=== PATIENT | male | born 1945 | race Caucasian/White ===

== ENCOUNTER 2021-03-23 06:34 | Inpatient (IN) | payer MEDICARE ==
[2021-03-23] VITALS (30 sets, daily range): BP systolic 88–120; BP diastolic 46–69
[~2021-03-23] VITALS: Ht 195.6 cm; Wt 106.1 kg
--- NOTE | ~2021-03-23 | EMS ---
[address] [address] EMS Patient Care Report Name: YOAN GAITAN Room #: PRE M.R.#: [id number] Admission: Attend Phys: Discharge: Date of : 43 Report #: [id number] THIS REPORT FOR: //name// Report Transmitted: 03/23/2021 06:46 EMS Care Summary [facility] MED-ACT Incident [id number] @ 03/23/2021 05:55 Incident Location [address] [place] [address] Patient YOAN GAITAN Male, 75 Years 1945 Patient Address [address] [place] [address] Patient History Quadriplegia,Respiratory Failure, Chief Complaint Altered Mental Status Disposition Transported No Lights/[place] Dispatch Reason Unconscious/Fainting Transported To [facility] Narrative M1144 found the pt lying in his bed at [facility] with OPFD and staff at [facility]. The report from OPFD and staff was that the pt has had a changed in responsiveness. Staff stated that the pt will move his lips. The pt seems more fatigued and will sometimes track and respond to EMS. There was no reports of the pt having any recent infections or Positive COVID tests. There was no reports chest pain, abdominal pain, nausea/vomiting, diarrhea, recent [address] [address] EMS Patient Care Report Name: YOAN GAITAN Room #: PRE [facility].Danielle.#: [id number] Admission: Attend Phys: Discharge: Date of : 43 Report #: [id number] illness, or recent trauma. The pt was transported with 2 paramedics at [facility]. The pt continued to have difficulty with BVM compliance. The Pt condition remained stable en route and with hand off to [place] ED RN. The pt was transferred to ED Room 10 via a sheet drag from EMS cot to ED bed. Initial Vitals @06:20P: 59,R: 40,BP: 156/83,EtCO2: 33,SpO2: 74, @06:29P: 84,R: 22,BP: 145/85,EtCO2: 74,SpO2: 61, @PTAP: 92,R: 20,BP: 72/54,Pain: 0/10,GCS: 6,Temp: 98F,Glucose: 187,SpO2: 96,Revised Trauma: 8, Impression Altered Mental Status Procedures @06:08 ALS Assessment Response: UnchangedSucceeded @06:12 Oxygen FlowRate: 25 Device: Bag Valve Mask (BVM) Response: UnchangedSucceeded Timeline ASSEMBLER GOLF WOOD HEAD,BP: 72/54 M,PULSE: 92,RR: 20 R,SPO2: 96 Ox,ETCO2: ,B,PAIN: 0,GCS: 6, 05:54,Call Received 05:54,Psap Call 05:55,Dispatched 05:57,En Route 06:02,On Scene 06:06,At Patient 06:08,ALS Assessment,Response: UnchangedSucceeded, 06:12,Oxygen FlowRate: 25 Device: Bag Valve Mask (BVM) Response: UnchangedSucceeded, 06:20,BP: 156/83 M,PULSE: 59,RR: 40 R,SPO2: 74 Ox,ETCO2: 33 ,BG: ,PAIN: ,GCS: , 06:20,Depart Scene 06:29,At Destination 06:29,BP: 145/85 M,PULSE: 84,RR: 22 R,SPO2: 61 Ox,ETCO2: 74 ,BG: ,PAIN: ,GCS: , 06:53,Call Closed Disclaimer v1.1 Copyright 2021 [employer] This EMS Care Summary contains data elements from the applicable legal record (which may be displayed differently). It is designed to provide pertinent information for the following purposes: continuity of care, clinical quality, and state data reporting. The complete legal record [place] [address] EMS Patient Care Report Name: YOAN GAITAN Room #: PRE M.R.#: [id number] Admission: Attend Phys: Discharge: Date of : 43 Report #: [id number] and administrators of the receiving hospital in [employer] Patient Tracker. All data is provided "as is."
--- NOTE | ~2021-03-23 | EMS ---
[address] [address] EMS Patient Care Report Name: YOAN ALTMAN Room #: 243-P ADM IN M.R.#: [id number] Admission: 03/23/21 Attend Phys: Nissa Suazo Discharge: Date of : 43 Report #: [id number] THIS REPORT FOR: //name// Report Transmitted: 03/29/2021 16:38 EMS Care Summary [facility] MED-ACT Incident [id number] @ 03/23/2021 05:55 Incident Location [address] [place] [address] Patient YOAN GAITAN Male, 75 Years 1945 Patient Address [address] [place] [address] Patient History Quadriplegia,Respiratory Failure, Chief Complaint Altered Mental Status Disposition Transported No Lights/[place] Dispatch Reason Unconscious/Fainting Transported To [facility] Narrative M1144 found the pt lying in his bed at [facility] with OPFD and staff at care. The report from OPFD and staff was that the pt has had a changed in responsiveness. Staff stated that the pt will move his lips. The pt seems more fatigued and will sometimes track and respond to EMS. There was no reports of the pt having any recent infections or Positive COVID tests. There was no reports chest pain, abdominal pain, nausea/vomiting, diarrhea, recent [address] [address] EMS Patient Care Report Name: YOAN ALTMAN Room #: 243-P ADM IN M.R.#: [id number] Admission: 03/23/21 Attend Phys: Nissa Suazo Discharge: Date of : 43 Report #: [id number] illness, or recent trauma. The pt was transported with 2 paramedics at [facility]. The pt continued to have difficulty with BVM compliance. The Pt condition remained stable en route and with hand off to [place] ED RN. The pt was transferred to ED Room 10 via a sheet drag from EMS cot to ED bed. Initial Vitals @06:20P: 59,R: 40,BP: 156/83,EtCO2: 33,SpO2: 74, @PTAP: 92,R: 20,BP: 72/54,Pain: 0/10,GCS: 6,Temp: 98F,Glucose: 187,SpO2: 96,Revised Trauma: 8, @06:29P: 84,R: 22,BP: 145/85,EtCO2: 74,SpO2: 61, Impression Altered Mental Status Procedures @06:08 ALS Assessment Response: UnchangedSucceeded @06:12 Oxygen FlowRate: 25 Device: Bag Valve Mask (BVM) Response: UnchangedSucceeded Timeline SHUTTLE VAN DRIVER,BP: 72/54 M,PULSE: 92,RR: 20 R,SPO2: 96 Ox,ETCO2: ,B,PAIN: 0,GCS: 6, 05:54,Call Received 05:54,Psap Call 05:55,Dispatched 05:57,En Route 06:02,On Scene 06:06,At Patient 06:08,ALS Assessment,Response: UnchangedSucceeded, 06:12,Oxygen FlowRate: 25 Device: Bag Valve Mask (BVM) Response: UnchangedSucceeded, 06:20,BP: 156/83 M,PULSE: 59,RR: 40 R,SPO2: 74 Ox,ETCO2: 33 ,BG: ,PAIN: ,GCS: , 06:20,Depart Scene 06:29,At Destination 06:29,BP: 145/85 M,PULSE: 84,RR: 22 R,SPO2: 61 Ox,ETCO2: 74 ,BG: ,PAIN: ,GCS: , 06:53,Call Closed Disclaimer v1.1 Copyright 2021 [employer] This EMS Care Summary contains data elements from the applicable legal record (which may be displayed differently). It is designed to provide pertinent information for the following purposes: continuity of care, clinical quality, and state data reporting. The complete [place] [address] EMS Patient Care Report Name: YOAN ALTMAN Room #: 243-P ADM IN M.R.#: [id number] Admission: 03/23/21 Attend Phys: Nissa Suazo Discharge: Date of : 43 Report #: [id number] and administrators of the receiving hospital in [employer] Patient Tracker. All data is provided "as is."
[2021-03-23 07:40] LABS: HEMATOCRIT 28.6 % (42.0-52.0); HEMOGLOBIN 8.8 gm/dL (14.0-18.0); MCH 33.3 pg (26.0-34.0); MCHC 30.7 g/dL (28.0-37.0); MCV 108.5 fL (80.0-100.0); PLATELET COUNT 296 thou/uL (150-400); RBC 2.64 mil/uL (4.50-6.00); RDW 21.2 % (10.5-14.5); WBC 16.7 thou/uL (4.0-11.0)
[2021-03-23 07:48] LABS: BE(vivo) 0.8 mmol/L (-2 to +3); HCO3 28.7 mmol/L (22.0-26.0); PO2 80.7 mmHg (80.0-100.0); sO2 93.9 % (92.0-98.0)
[2021-03-23 07:50] LABS: PCO2 65.3 mmHg (35.0-45.0); pH 7.261 (7.360-7.450)
[2021-03-23 07:54] LABS: CALCIUM 9.5 mg/dL (8.5-10.1); CREATININE 0.5 mg/dL (0.7-1.3); POTASSIUM 5.8 mmol/L (3.5-5.1)
[2021-03-23 08:03] LABS: ALBUMIN 2.2 g/dL (3.4-5.0); TOTAL BILIRUBIN 0.4 mg/dL (0.2-1.0); TOTAL PROTEIN 9.1 g/dL (6.4-8.2)
[2021-03-23 08:24] LABS: URINE BILIRUBIN NEGATIVE (Negative); URINE BLOOD 2+ (Negative); URINE CLARITY HAZY; URINE COLOR YELLOW; URINE GLUCOSE-RANDOM* NEGATIVE (Negative); URINE KETONES NEGATIVE (Negative); URINE LEUKOCYTES-REFLEX 2+ (Negative); URINE NITRITE-REFLEX NEGATIVE (Negative); URINE PROTEIN (DIPSTICK) 2+ (Negative); URINE SPECIFIC GRAVITY >= 1.030 (1.005-1.035); URINE UROBILINOGEN 0.2 E.U./dl (0.2-1.0)
[2021-03-23 08:42] LABS: SQUAMOUS 0-3 Few /LPF (0-3)
[2021-03-23 08:43] LABS: BACTERIA-REFLEX >30 Many /HPF (None Seen); CASTS None Seen /LPF (None Seen); CRYSTALS None Seen /LPF (None Seen); MUCUS 0-3 Light strn/LPF (None Seen); URINE RBC 1-2 Rare /HPF (NONE SEEN)
[2021-03-23 10:08] LABS: BE(vivo) 5.7 mmol/L (-2 to +3); HCO3 31.9 mmol/L (22.0-26.0); PCO2 56.4 mmHg (35.0-45.0); PO2 101.6 mmHg (80.0-100.0); sO2 97.4 % (92.0-98.0)
[2021-03-23 10:21] LABS: ABSOLUTE NEUTROPHILS 14.7 thou/uL (1.4-8.2)
[2021-03-23 10:23] LABS: ANISOCYTOSIS 2+; POLYCHROMASIA OCCASIONAL
--- NOTE | 2021-03-23 11:24 | NUR ---
PT VENT SETTINGS: PEEP 8, RATE 18, VOLUME 500, FIO2 45%
--- NOTE | 2021-03-23 13:25 | NUR ---
PT POWER OF SECURITIES TRADER WAS ATTEMPTED TO BE REACHED FOR CONSENT FOR CENTRAL LINE BUT SHE DID NOT ANSWER. CENTRAL LINE BEING STARTED OUT OF MEDICAL NECCESSITY FOR PATIENT DUE TO ACUTE CONDITION.
--- NOTE | 2021-03-23 14:45 | NUR ---
CL PLACED IN ER FOR SEPSIS
--- NOTE | 2021-03-23 14:47 | NUR ---
PT ADMITTED RELATED TO HYPERCAPNEA. CM REVIWED CHART AND SPOKE WITH CARE TEAM. CM CALLED AND SPOKE WITH PT'S DTR OLGA LIDIA GRIMALDO . SHE INDICATED THAT PT HAD BEEN AT [facility] BAND SAW RUNNER. SHE CONFIRMED THAT PT HAS HX OF QUADRAPLEGIA HAD A TRACH, PEG, AND BL NEPHROSTOMY TUBES. SHE INDICATED THAT PT HAD BEEN MOSTLY NONVERBAL BAND SAW RUNNER BUT HE HAD BEEN ABLE TO MAKE HIS NEES KNOWN (FAMILY/STAFF COULD READ HIS LIPS.) DTR INDICATED THAT PLAN WOULD BE FOR PT TO WAKE [facility] ONCE MEDICALLY STABLE. PT WAS PUT ON VENT UPON ADMISSION FIO2 45% PEEP 8. PT HAD MIDLINE PLACED. CM NOTIFIED [facility]. CM FAXED CLINICAL INFO TO FACILITY. CM TO FOLLOW INDICATED WITH DC PLANNING.
--- NOTE | 2021-03-23 20:01 | NUR ---
PT ARRIVED TO ICU FROM ED AT 1745 BY ED RN AND ED RT. PT DID NOT HAVE ANY BELONGINGS UPON ADMIT TO ICU. PT STATUS REMAINED STABLE AND PT DENIED PAIN OR DISCOMFORT. ED DID NOT INFORM THIS RN THAT PATIENT WAS SEPTIC AND PT DID NOT PRESENT WITH A FEVER. STAT CT WAS ORDERED AT 1705 AND WAS NOT COMPLETED PRIOR TO ICU ADMIT. THIS RN CALLED CT TWICE AND COULD NOT GET AHOLD OF ANYONE. MECHATRONICS TECHNICIAN TO FOLLOW UP WITH CT. PT FOLLOWED SOME COMMANDS, BUT WAS NOT RESPONSIVE ENOUGH TO THOROUGHLY COMPLETE ADMIT EDUCATION, HISTORY, AND ASSESSMENT. UMBILICAL WOUND PHOTOGRAPH WAS TAKEN AND PLACED IN PT'S CHART. RN TO FOLLOW PLAN OF CARE.
[2021-03-24] VITALS (67 sets, daily range): BP systolic 84–140; BP diastolic 47–83
[2021-03-24 05:04] LABS: CALCIUM 8.6 mg/dL (8.5-10.1); CREATININE 0.5 mg/dL (0.7-1.3)
[2021-03-24 05:06] LABS: MCH 35.7 pg (26.0-34.0); MCHC 33.9 g/dL (28.0-37.0); MCV 105.4 fL (80.0-100.0); RBC 1.83 mil/uL (4.50-6.00); RDW 20.4 % (10.5-14.5); WBC 8.1 thou/uL (4.0-11.0)
[2021-03-24 05:26] LABS: HEMATOCRIT 19.3 % (42.0-52.0); HEMOGLOBIN 6.3 gm/dL (14.0-18.0)
[2021-03-24 05:47] LABS: POTASSIUM 4.1 mmol/L (3.5-5.1)
--- NOTE | 2021-03-24 06:38 | NUR ---
ASSUMED CARE OF PT AT 1900. DURING THIS SHIFT I OBTAINED AN EKG THAT SHOWED THE PATIENT HAS CONVETED TO AFIB. I CONTACTED THE LUGGAGE REPAIRER AND RECIEVED ORDERS AND IMPLEMENTED THEM. THERE WERE CRITICAL LABS THIS MORNING A HGB OF 6.3 AND HCT OF 19.3, I RECIEVED ORDERS TO TRANSFUSE WITH 1 UNIT OF PRBC AND HOLD LOVENOX. THIS RN AND A WITNESS CALLED THE PATIENTS DAUGHTER TO OBTAIN CONSENT FOR BLOOD. WILL CONTINUE TO FOLLOW POC.
--- NOTE | 2021-03-24 07:48 | HC ---
[facility] [place] [address] CONSULTATION Name: YOAN ALTMAN Room #: 250-P ADM IN M.R.#: [id number] Admission: 03/23/21 Attend Phys: Nissa Suazo Discharge: Date of : 43 Report #: [id number] THIS REPORT FOR: cc: UNKNOWN UNKNOWN Pablo Mane MD ~ DATE OF SERVICE: 03/23/2021 INFECTIOUS DISEASE CONSULTATION ATTENDING PHYSICIAN: Dr. Suazo. REASON FOR EVALUATION: Septic shock. HISTORY OF PRESENT ILLNESS: Chart reviewed. The patient examined. This is a 75-year-old gentleman who is quadriplegic. He is on a chronic ventilatory support on acute long-term care facility. He was found to be markedly hypotensive with systolic blood pressures in the 70s, subsequently developed saturations in the 30s as well, has tracheostomy in place, thick colored sputum. He does have bilateral nephrostomy tubes. His urinalysis did show moderate to marked pyuria. Chest x-ray; bilateral infiltrates, perhaps multifactorial, can exclude a component of pulmonary edema. Lactic acid was 2.0. ProBNP elevated at 9470. Pro-calcitonin 0.73. Influenza antigen was negative. Sputum culture is pending, although Gram stain showed few gram-negative rods. He was empirically started on Zosyn and vancomycin. He is awake. It is difficult to ascertain his level of coherence. He attempts speaking, but it quite difficult to read his lips. ALLERGIES: SYNVISC. CURRENT MEDICATIONS: Include vancomycin, enoxaparin, guaifenesin, hydrocortisone, acetylcysteine, Zosyn, sliding scale insulin, p.r.n. analgesics and antiemetics. He is currently not requiring pressor support. PAST MEDICAL HISTORY: Quadriplegia. History of stroke. He is on chronic ventilatory support via tracheostomy, has a PEG tube in place. Bilateral nephrostomies. SOCIAL AND FAMILY HISTORY: Available in chart. REVIEW OF SYSTEMS: Not obtainable. PHYSICAL EXAMINATION: GENERAL: He appears chronically ill. He is fairly animated, although it is very difficult to understand any particular communication. VITAL SIGNS: Temperature 98.1, pulse 80, respirations 18, blood pressure 93/48. [facility] [address] [place] [address] CONSULTATION Name: YOAN ALTMAN Room #: 250-[facility] IN M.R.#: [id number] Admission: 03/23/21 Attend Phys: Nissa Suazo Discharge: Date of : 43 Report #: [id number] SKIN: Warm, dry. HEENT: Normocephalic. Extraocular muscles intact. No oral lesions. NECK: Tracheostomy in place. LUNGS: Scattered coarse breath sounds. HEART: Distant. I do not appreciate a murmur. ABDOMEN: Obese, firm, no apparent peritoneal signs. Does have a PEG tube in place. EXTREMITIES: Bilateral nephrostomies. GENITOURINARY AND RECTAL: Deferred. LABORATORY DATA: Recent chest x-ray, mid to lower lung infiltrates. Cultures are pending. CBC: White count of 16.7, H and H 8.8 and 28.6, MCV of 108.5, platelet count of 296. ABGs: A pH 7.370, pCO2 of 56.4, pO2 101.6, FiO2 of 45%. Lactic acid 1.7. Influenza antigen negative. Urinalysis; 16-25 white cells, greater than 30 bacteria. Pro-calcitonin 0.73. Liver function tests unremarkable. Alkaline phosphatase 131, total protein of 91, albumin of 2.2. ASSESSMENT AND PLAN: Septic shock, likely on the basis of complicated genitourinary tract infection, although can exclude aspiration pneumonitis, somewhat maintained his oxygen status. We will continue broad-spectrum antimicrobial therapy. Await culture results that are pending. He is certainly critically ill with a heavy disease burden, very little room for deterioration, do additional diagnostic testing. Continue supportive care. <ELECTRONICALLY SIGNED> By: Pablo Mane MD 03/24/21 0748 1558 2131 Pablo Mane MD /nt
[2021-03-24 08:05] LABS: % SATURATION 35 % (20-39); IRON 62 ug/dL (65-175); TIBC 176 ug/dL (250-450)
--- NOTE | 2021-03-24 08:37 | EKG ---
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 : 1945 Requested By: Moira Helms Order Number: [id number] MD: Keyshawn Montejo Measurements Intervals [place] Rate: 81 P: 69 UT: 212 QRS: 65 QRSD: 90 T: 91 QT: 414 QTc: 481 Interpretive Statements Sinus rhythm Borderline prolonged UT interval Nonspecific T abnormalities, lateral leads No previous ECG available for comparison Electronically Signed On 03-24-2021 8:37:24 WIND FIELD SERVICE MANAGER by Keyshawn Monteoj [email or web address] <ELECTRONICALLY SIGNED> By: Keyshawn Montejo MD, [facility] 03/24/21 0837 0829 8 Keyshawn Montejo MD, FACC /EPI
--- NOTE | 2021-03-24 08:40 | EKG ---
[address] [place] [address] ELECTROCARDIOGRAM REPORT Name: YOAN ALTMAN Room #: 250-P ADM IN M.R.#: [id number] Admission: 03/23/21 Attend Phys: Nissa Suazo Discharge: Date of : 43 Report #: [id number] [facility] Test Date: 2021-03-24 Test Time: 04:27:35 Pat Name: YOAN ALTMAN Department: Room: 250 P Gender: M Senior Program Manager: : 1945 Requested By: Nestor Nj Order Number: [id number] MD: Keyshawn Montejo Measurements Intervals [place] Rate: 124 P: TN: QRS: 62 QRSD: 93 T: 107 QT: 354 QTc: 509 Interpretive Statements Atrial fibrillation Nonspecific T abnormalities, lateral leads Prolonged QT interval Baseline wander in lead(s) II,III,aVR,aVF Compared to ECG 03/23/2021 08:29:47 Sinus rhythm no longer present T-wave abnormality still present Electronically Signed On 03-24-2021 8:40:27 TECHNICAL STAFF ENGINEER by Keyshawn Montejo [email or web address] <ELECTRONICALLY SIGNED> By: Keyshawn Montejo MD, [facility] 03/24/21 0840 0427 0427 Keyshawn Montejo MD, [facility] /EPI
--- NOTE | 2021-03-24 13:22 | NUR ---
If okay with GI, recommend start enteral nutrition via PEG of vital AF 1.2 at 40ml/hr and progress to goal of 85ml/hr with 250ml water flush every 6hr. Rec discontinue IVF once tube feeds tolerated.
--- NOTE | 2021-03-24 13:23 | 2DMMODE ---
[facility] [place] [address] 2 D/M-MODE ECHOCARDIOGRAM Name: YOAN ALTMAN Room #: 250-P ADM IN M.R.#: [id number] Admission: 03/23/21 Attend Phys: Nissa Suazo Discharge: Date of : 43 Report #: [id number] THIS REPORT FOR: cc: UNKNOWN UNKNOWN Sid Jaeger MD ~ APPROVED REPORT Study performed: 03/24/2021 10:35:59 EXAM: Comprehensive 2D, Doppler, and color-flow Echocardiogram Patient Location: ICU Room #: 250 Status: routine BSA: 2.19 HR: 80 bpm BP: 117/58 mmHg Rhythm: Atrial Fibrillation Other Information Study Quality: Technically Difficult Technically limited study due to inability to position patient, patient on ventilator. Indications Atrial Fibrillation Sepsis Dyspnea Aortic Valve AoV Peak Collin.: 1.50 m/s AO Peak Gr.: 8.94 mmHg LVOT Max P.36 mmHg LVOT Max V: 0.92 m/s Tricuspid Valve TR Peak Collin.: 2.72 m/s TR Peak Gr.: 29.51 mmHg PA Pressure: 30.00 mmHg Left Ventricle The left ventricle is normal size. There is normal LV segmental wall motion. There is normal left ventricular wall thickness. The left ventricular systolic function is normal. The left ventricular ejection fraction is within the normal range. LVEF is 55-60%. This [facility] [place] [address] 2 D/M-MODE ECHOCARDIOGRAM Name: YOAN ALTMAN Room #: 250-P ADM IN M.R.#: [id number] Admission: 03/23/21 Attend Phys: Nissa Felix Discharge: Date of : 43 Report #: [id number] study is not technically sufficient to allow evaluation of the LV diastolic function due to atrial fibrillation. Right Ventricle The right ventricle is normal size. The right ventricular systolic function is normal. Atria The left atrium size is normal. The right atrium size is normal. Aortic Valve The aortic valve is not well visualized. No aortic regurgitation is present. There is no aortic valvular stenosis. Mitral Valve The mitral valve is normal in structure. There is no mitral valve regurgitation noted. No evidence of mitral valve stenosis. Tricuspid Valve The tricuspid valve is normal in structure. There is trace to mild tricuspid regurgitation. Estimated PAP 30 mmHg plus the right atrial pressure. Pulmonic Valve Pulmonic valve is not well visualized. There is no pulmonic valvular regurgitation. Great Vessels The aortic root is normal in size. The inferior vena cava is not well visualized. Pericardium There is no pericardial effusion. <Conclusion> The left ventricle is normal size. There is normal left ventricular wall thickness. The left ventricular systolic function is normal. The right ventricle is normal size. The left atrium size is normal. The aortic valve is not well visualized. There is no mitral valve regurgitation noted. [facility] [place] [address] 2 D/M-MODE ECHOCARDIOGRAM Name: YOAN ALTMAN Room #: 250-P ADM IN M.R.#: [id number] Admission: 03/23/21 Attend Phys: Nissa Felix Discharge: Date of : 43 Report #: [id number] There is trace to mild tricuspid regurgitation. Estimated PAP 30 mmHg plus the right atrial pressure. <ELECTRONICALLY SIGNED> By: Sid Jaeger MD 03/24/213 22 22 Sid Jaeger MD /INF
--- NOTE | 2021-03-24 15:27 | NUR ---
RICARDO faxed clinical info to [facility] for review. Notified Poly liaisons, Raffy. Possible weekend discharge. Awaiting input from facility if they are able to accept pt back over the weekend. RICARDO is following to assist as needed with discharge planning.
[2021-03-24 16:58] LABS: HEMATOCRIT 24.9 % (42.0-52.0); HEMOGLOBIN 8.1 gm/dL (14.0-18.0)
--- NOTE | 2021-03-24 19:40 | NUR ---
PT IS PROGRESSING TOWARDS DISCHARGE, APPEARS MORE AWAKE TODAY AND WAS ABLE TO GO DOWN TO THE CT THIS MORNING FOR DIAGNOSTICS IMAGING. BILATERAL NEPHROSTOMY TUBES REMAINS IN PLACE AND DRAINS, COMPLAINTS FROM PATIENT FOR PAIN ONCE WHEN MOBILIZING AND MORPHINE WAS GIVEN. DILTIAZEM GTT WAS DC'D AND PO MEDS WERE INITATED, PT WAS FOUND TO BE HYPOTENSIVE/AND BRADYCARDIC WHILE SLEEPING X1 AND RN ASSESSED, DILTIAZEM PO WAS NOT GIVEN PER PT'S CONDITION THE TWO DOSES AFTER PT DID HAVE AN INCIDENCE WHERE HE WAS DECLINING CARE, RN CALLED THE DAUGHTER TO SPEAK, PER DTR OLGA LIDIA PAEZ, PT IS COMPLETELY ORIENTED AND ALERT, RN WENT TO SPEAK TO THE PATIENT, PT WAS FOUND TO BE DISORIENTED OF TIME STATING [address] STATING THE [place] TRACKS. NO COMPLAINTS FROM PATIENT THIS SHIFT, THOUGH IT IS MORE DIFFICULT TO READ PT'S LIPS THERE ARE NO TEETH. BED BATH WAS PROVIDED, PT IS CURRENTLY SEEN RESTING PEACEFULLY UROLOGY IS CONSULTED AND WILL BE SEEN BY A PHYSICIAN TOMORROW. MRSA IS PENDING, VANCO TROUGH CAME BACK HIGH, H/H CAME BACK HIGHER AFTER THE FIRST UNIT OF BLOOD. PT WILL CONTINUE TO BE MONITORED FOR ANY OVERT SIGNS OF BLEEDING, OCCULT STOOL SAMPLE DOES NEED TO BE COLLECTED WHEN READY. TUBE FEEDING IS HELD OFF UNTIL CT OF THE ABDOMEN AND PELVIS IS COMPLETED, EXPECTING TUBE FEEDING TO RESUME TOMORROW. [facility] WAS CONTACTED BY THE COIN MACHINE SERVICE REPAIRER ON NUMEROUS OCCASION THROUGH THE FAX MACHINE, AT ALL TIMES THE FAX MACHINE STATED BUSY LINES AND THEREFORE REQUEST FOR PAST MEDICAL RECORDS COULD NOT BE COMPLETED. UNFORTUNATELY. RN SIGNING OFF AT THIS TIME
[2021-03-25] VITALS (19 sets, daily range): BP systolic 86–133; BP diastolic 31–77
[2021-03-25 03:47] LABS: HEMATOCRIT 25.5 % (42.0-52.0); HEMOGLOBIN 8.2 gm/dL (14.0-18.0); MCH 32.4 pg (26.0-34.0); MCHC 32.1 g/dL (28.0-37.0); MCV 101.1 fL (80.0-100.0); RBC 2.52 mil/uL (4.50-6.00); RDW 22.7 % (10.5-14.5); WBC 7.6 thou/uL (4.0-11.0)
[2021-03-25 03:51] LABS: CALCIUM 8.4 mg/dL (8.5-10.1); CREATININE 0.5 mg/dL (0.7-1.3); POTASSIUM 3.6 mmol/L (3.5-5.1)
--- NOTE | 2021-03-25 06:21 | NUR ---
ASSUMED CARE OF PT AT 1900. PT WENT INTO AFIB RVR OVERNIGHT. THIS RN PAIGED CARDIOLOGY AT 0415 TO INFORM OF THIS EVENT. CALL WAS NOT RETURNED. PT CONVERTED BACK TO SINUS RHYTHM. NO OTHER ACUTE CHANGES OVERNIGHT. WILL CONTINUE TO FOLLOW POC.
[2021-03-25 09:39] LABS: APTT 25.1 Seconds (24.5-32.8); INR 1.07; PROTIME 11.6 Seconds (10.5-12.1)
--- NOTE | 2021-03-25 10:33 | NUR ---
This RN spoke with the patient's daughter, Sasha Frederick, over the phone from [phone] and she was updated and educated on the patient's condition and plan of care. Consent was obtained from her regarding the patient's upcoming nephrostomy exchange.
--- NOTE | 2021-03-25 12:36 | NUR ---
Change tube feed formula to vital AF 1.2 at 50ml/hr. Dr Suazo would like to keep water flushes at 100ml QID
[2021-03-25 14:07] LABS: GLOBULIN TOTAL 5.8 g/dL (2.2-3.9); M-SPIKE Not Observed g/dL (Not Observed)
--- NOTE | 2021-03-25 14:20 | NUR ---
Case discussed with the care team. No weekend dc anticipated. 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 Urology consulted for replacement of his bilat nephro tubes. GI following for anemia. HBG 8.2 this am. They will monitor. Clinical updated called and faxed to Darcie in admissions at [facility]. They can accept him for readmission on Sunday if medical ready. Will follow.
[2021-03-26] VITALS (60 sets, daily range): BP systolic 69–180; BP diastolic 47–97
[2021-03-26 05:35] LABS: ALBUMIN 1.8 g/dL (3.4-5.0); CALCIUM 8.8 mg/dL (8.5-10.1); CREATININE 0.6 mg/dL (0.7-1.3); MAGNESIUM 2.4 mg/dL (1.8-2.4); PHOSPHORUS 5.2 mg/dL (2.5-4.9); POTASSIUM 3.3 mmol/L (3.5-5.1); TOTAL BILIRUBIN 0.2 mg/dL (0.2-1.0); TOTAL PROTEIN 7.2 g/dL (6.4-8.2)
--- NOTE | 2021-03-26 06:35 | NUR ---
This RN received pt report at 2200, from ADAN Simon. pt was tranferred from ICU room 250 to ICU room 243 at 0100 with the help of RT and recharger. Tranfer was successful and pt condition remain similar prior to transfer.
--- NOTE | 2021-03-26 12:01 | NUR ---
PT C/O OF INTERMITTANT CHEST PAIN, SAYS IT COMES AND GOES. PT IS NON VERBAL, AM LIP READING PATIENT. PT HR THIS MORNING WAS IN 60-70 RANGE WITH B/P BORDERLINE HYPOTENSIVE. CARTOON DESIGNER ROUNDED THIS AM, INFORMED HIM OF FINDINGS AND AGREED TO HOLD METORPROLOL. PAGED DR. WATKINS AT 1200 INFORMING HIM OF PT C/O OF CP AT THIS TIME, STAT EKG ORDERED.
--- NOTE | 2021-03-26 14:09 | NUR ---
PT BECAME HYPOTENSIVE WITH PRESSURES READING IN 80'S SYSTOLIC, PT STARTED ON 0.1MCG/KG/MIN. PT RESPONDED WELL TO MEDICATION.
--- NOTE | 2021-03-26 16:36 | NUR ---
PT CONTINUES TO HAVE AFIB RVR WITH RATES REACHING 168/MIN DESPITE BEING ON AMIO GTT AT 1MG/MIN. PUT IN PAGE TO CARDIOLOGY GROUP, PER DR. FISCHER PT IS TO GET DIGOXIN IVP 1MG NOW AND 6 HRS LATER TO GET 0.5MG IVP. WILL CONTINUE TO FOLLOW POC AND MONITOR/REASSESS.
--- NOTE | 2021-03-26 20:38 | EKG ---
[address] [address] ELECTROCARDIOGRAM REPORT Name: YOAN ALTMAN Room #: 243- ADM IN M.R.#: [id number] Admission: 03/23/21 Attend Phys: Nissa Suazo Discharge: Date of : 41 Report #: [id number] [facility] Test Date: 2021-03-26 Test Time: 12:12:27 Pat Name: YOAN ALTMAN Department: Room: [facility] Gender: M Insurance Loss Adjuster: DONTA : 1945 Requested By: Nissa Suazo Order Number: [id number] MD: Roger Lin Measurements Intervals Stephan Rate: 89 P: AR: QRS: 46 QRSD: 99 T: 72 QT: 403 QTc: 491 Interpretive Statements Atrial fibrillation Minimal ST depression, inferior leads Borderline prolonged QT interval Compared to ECG 03/24/2021 04:27:35 No significant change was found Electronically Signed On 03-26-2021 20:38:22 MEAT SLICER by Roger Lin [email or web address] <ELECTRONICALLY SIGNED> By: Roger Lin MD, [facility] 03/26/212037 11 11 Roger Lin MD, FAC /EPI
[2021-03-27] VITALS (72 sets, daily range): BP systolic 69–191; BP diastolic 26–102
--- NOTE | 2021-03-27 06:21 | NUR ---
PT RESTED WELL THROUGH THE NOC IN NO ACUTE DISTRESS.PT A/OX3.MAKES HIS NEEDS KNOW TO STAFF.PT ON TRACH AND VENT.NO RESP DISTRESS NOTED.WOUND CARE TO MID ABD COMPLETED PER ORDERS.PT AFIB/SR/SB/SA ON MONITOR.HR CONTROLLED.REMAINS ON AMIO DRIP.ASSESSMENT COMPLETED DOCUMENTED.
--- NOTE | 2021-03-27 18:06 | NUR ---
Patient progressing towards plan of care as evidenced by improved interaction, maintaining oxygenation, controled heart rate with amiodarone, and vital signs within normal limits per Physician parameters.
--- NOTE | 2021-03-27 21:33 | NUR ---
patients cares done , assessment done, oral care was given. trough draw was late due to rn believed the vanco was on hold. Kaz the pharmacist stated vanco on hold due to high trough 25-30. the plan is to restart vanco at some point.
--- NOTE | 2021-03-27 22:45 | NUR ---
VANCO TROUGH BACK TONIGHT LEVEL IS 16. WBC'S ARE WNL. NO OTHER LABS DRAWN. OUT PUT IS GOOD
[2021-03-28] VITALS (26 sets, daily range): BP systolic 100–140; BP diastolic 52–77
[2021-03-28 09:23] LABS: CALCIUM 8.5 mg/dL (8.5-10.1); CREATININE 0.5 mg/dL (0.7-1.3); POTASSIUM 3.3 mmol/L (3.5-5.1)
--- NOTE | 2021-03-28 10:24 | NUR ---
Will change tube feed to jevity 1.5, concentrated formula, with new goal of 70ml/hr.
--- NOTE | 2021-03-28 11:05 | NUR ---
Discussed during unit rounds with pulmonary MD and during los with the attending physician. No anticipated dc back to [facility] today. trach/peg 30 % with peep 8. Will cont following as needed.
--- NOTE | 2021-03-28 17:25 | NUR ---
PATIENT PROGRESSING TOWARDS THE PLAN OF CARE. MEDICAL RECORDS FROM [facility] OBTAINED AROUND 1700.
[2021-03-29] VITALS: BP 128/67
[2021-03-29 04:01] VITALS: BP 130/71
[2021-03-29 05:08] LABS: HEMATOCRIT 24.5 % (42.0-52.0); HEMOGLOBIN 7.8 gm/dL (14.0-18.0)
[2021-03-29 05:45] LABS: CALCIUM 8.2 mg/dL (8.5-10.1); CREATININE 0.4 mg/dL (0.7-1.3); MAGNESIUM 1.9 mg/dL (1.8-2.4)
--- NOTE | 2021-03-29 07:25 | NUR ---
No significant changes in pt status this shift. Tolerating tube feeding, which is now at goal rate of 70 cc/hr. Pt had 2 moderate size liquid brown stools. 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 Nephrostomy tubes draining clear yellow urine.
--- NOTE | 2021-03-29 11:15 | NUR ---
Discussed during los with the attending physician. Ready to dc back to [facility]. Chart copy requested. updates sent to [facility], they are able to accept him back today, ltc. Bedside nurse to call report to [phone]
[2021-03-29] MEDS ORDERED: LEVALBUTER0.63 MG/3 INH (11:17)
[2021-03-29] MEDS ORDERED: XARELTO20 MG PO (11:18)
[2021-03-29] MEDS ORDERED: ACETAMINOPHEN325 M1 PO (11:19)
[2021-03-29] MEDS ORDERED: PACERONE 200 M200 M1 PER TUBE (11:19)
[2021-03-29] MEDS ORDERED: DAKIN'S473 M2 IRRIG (11:19)
[2021-03-29] MEDS ORDERED: AVYCAZ 2 GM-0.2.5 GM IV (11:20)
[2021-03-29] MEDS ORDERED: ADULT TUSS100 MG/5 M PER TUBE (11:20)
[2021-03-29 11:21] LABS: ABSOLUTE RETIC COUNT 0.073 10^6/uL; OBSERVED RETIC COUNT 3.04 % (0.6-2.6)
[2021-03-29 12:00] VITALS: BP 113/89
--- NOTE | 2021-03-29 12:16 | NUR ---
SPOKE TO PT REGARDING DISCHARGE BACK TO FACILITY. PT RELAYED SOME ANXIETY THAT THE STAFF AT [facility] WILL FORCE HIM TO GET A RANDLE CATHETER. PT HAS STATED THAT HE DOES NOT WANT A RANDLE CATHETER. RN EXPLAINED WHY HE NEEDS A RANDLE CATHETER. PT UNDERSTANDS AND STILL REFUSES A CATHETER.
[2021-03-29 12:59] LABS: FOLIC ACID 8.8 ng/mL (8.6-58.9)
[2021-03-29 16:58] VITALS: BP 130/64
[2021-03-29 20:01] VITALS: BP 162/137
[2021-03-30 00:01] VITALS: BP 101/59
[2021-03-30 04:01] VITALS: BP 111/63
[2021-03-30 04:40] LABS: BE(vivo) -0.7 mmol/L (-2 to +3); HCO3 23.6 mmol/L (22.0-26.0); PO2 92.6 mmHg (80.0-100.0); pH 7.422 (7.360-7.450); sO2 97.3 % (92.0-98.0)
[2021-03-30 06:37] LABS: HEMATOCRIT 24.9 % (42.0-52.0); HEMOGLOBIN 8.1 gm/dL (14.0-18.0); MCH 33.3 pg (26.0-34.0); MCHC 32.3 g/dL (28.0-37.0); RBC 2.42 mil/uL (4.50-6.00); RDW 22.8 % (10.5-14.5); WBC 6.1 thou/uL (4.0-11.0)
[2021-03-30 06:47] LABS: CALCIUM 8.1 mg/dL (8.5-10.1); CREATININE 0.4 mg/dL (0.7-1.3); POTASSIUM 4.1 mmol/L (3.5-5.1)
[2021-03-30 08:00] VITALS: BP 93/59
[2021-03-30 08:08] LABS: HEP B SURFACE Ab(ANTI-HBS Non Reactive (()); HEPATITIS B SURFACE AG Negative (Negative); HEPATITIS C VIRUS AB <0.1 (0.0-0.9)
[2021-03-30] MEDS ORDERED: SULFAMETHOXAZO473 ML PER TUBE (11:20)
[2021-03-30] MEDS ORDERED: ZOSYN 3.373.375 GM/1 IV (11:20)
--- NOTE | 2021-03-30 11:48 | NUR ---
IV atb changed to Zosyn. [facility] snf updated and they can accept for readmission to ltc today. [facility] arranged for 4pm vent transport; pt to be bagged. Unit rn to call report and ICU sec to update chart copy with dc summary and instructions from today. DC orders faxed to admissions at [facility]. Attempted to call pt's dtr to update on dc today but no answer at her number and her voice mail is not setup. Unit Rn to try her again this afternoon. Dc plan is to return to [facility] care at [facility] this afternoon.
[2021-03-30 12:00] VITALS: BP 100/56
--- NOTE | 2021-03-30 15:16 | NUR ---
PT ALERT AND ORIENTED TIMES FOUR. VENT/TRACH CAN MOUTH WORDS TO LET NEEDS BE KNOW. VSS. TUBE FEEDING PER GOAL. PT TOLERATES WELL. BILATERAL NEPHROSTOMY TUBES TO DD. PT DENIES PAIN. PT RETURNING TO [facility] TODAY. REPORT CALL TO NURSE, MILLINERY SALESPERSON TIME IS 1600. WILL CONTINUE TO MONITOR.
[2021-03-30 16:00] VITALS: BP 93/49
[2021-03-30 19:07] LABS: ANA INTERPRETATION Negative (())
== END 2021-03-30 17:55 | DRG 870 ==
LOC: ER 06:34 → ICU 10:20 → EROBS 10:20 → ICU 18:03
PROVIDERS: Emergency Medicine; Internal Medicine; Internal Medicine Pulmonary Disease; Nurse Practitioner; Nurse Practitioner Adult Health; Nurse Practitioner Family; Pediatrics; Radiology Vascular & Interventional Radiology; Specialist; ADMIT Hospitalist; ATTEND Hospitalist
PROC: 02HV33Z Insertion of Infusion Device into Superior Vena Cava, Percutaneous Approach (ICD-10-PCS; principal; 2021-03-23)
PROC: 5A1955Z Respiratory Ventilation, Greater than 96 Consecutive Hours (ICD-10-PCS; principal; 2021-03-23)
PROC: 30233N1 Transfusion of Nonautologous Red Blood Cells into Peripheral Vein, Percutaneous Approach (ICD-10-PCS; 2021-03-24)
PROC: 0T25X0Z Change Drainage Device in Kidney, External Approach (ICD-10-PCS; 2021-03-25)
PROC: BT131ZZ Fluoroscopy of Bilateral Kidneys using Low Osmolar Contrast (ICD-10-PCS; 2021-03-25)
DX: A41.9 Sepsis, unspecified organism (principal); J18.9 Pneumonia, unspecified organism; G82.50 Quadriplegia, unspecified; R65.21 Severe sepsis with septic shock; J96.21 Acute and chronic respiratory failure with hypoxia; J96.22 Acute and chronic respiratory failure with hypercapnia; E43 Unspecified severe protein-calorie malnutrition; G92.8 Other toxic encephalopathy; N39.0 Urinary tract infection, site not specified; N32.2 Vesical fistula, not elsewhere classified; R31.9 Hematuria, unspecified; K21.9 Gastro-esophageal reflux disease without esophagitis; T17.990A Other foreign object in respiratory tract, part unspecified in causing asphyxiation, initial encounter; R13.10 Dysphagia, unspecified; T81.89XA Other complications of procedures, not elsewhere classified, initial encounter; R53.81 Other malaise; I48.91 Unspecified atrial fibrillation; D64.9 Anemia, unspecified; Y95 Nosocomial condition; S31.109A Unspecified open wound of abdominal wall, unspecified quadrant without penetration into peritoneal cavity, initial encounter; E66.01 Morbid (severe) obesity due to excess calories; Z88.8 Allergy status to other drugs, medicaments and biological substances; X58.XXXA Exposure to other specified factors, initial encounter; Y93.89 Activity, other specified; Y92.89 Other specified places as the place of occurrence of the external cause; Y99.8 Other external cause status; Z86.73 Personal history of transient ischemic attack (TIA), and cerebral infarction without residual deficits; Z93.0 Tracheostomy status; Z68.27 Body mass index [BMI] 27.0-27.9, adult
CPT/HCPCS: 10078; 10203; 85076